=== PATIENT | female | born 1955 | race Caucasian/White ===

== ENCOUNTER → 2017-12-27 11:40 | Outpatient (CLI) | payer OTHER, SELFPAY ==
[2017-12-27 12:18] LABS: Erythrocyte Sedimentation Rate 6 mm/hr (0-30)
[2017-12-27 12:31] LABS: CRP < 2.90 mg/L (0.0-3.0); Ferritin 76 ng/mL (8-252); Iron 94 ug/dL (50-170)
[2017-12-27 12:33] LABS: Vitamin B12 962 pg/mL (211-911)
[2017-12-30 14:35] LABS: Thyroid Stim Hormone (TSH) 1.59 uIU/mL (0.358-3.74)
[2017-12-30 16:09] LABS: PROEL- A/G Ratio 1.2 (0.7-1.7); PROEL- Albumin 3.7 g/dL (2.9-4.4); PROEL- Alpha-1 Globulin 0.2 g/dL (0.0-0.4); PROEL- Alpha-2 Globulin 0.7 g/dL (0.4-1.0); PROEL- Beta Globulin 1.1 g/dL (0.7-1.3); PROEL- Gamma Globulin 1.1 g/dL (0.4-1.8); PROEL- Globulin, Total 3.1 g/dL (2.2-3.9); PROEL- TOTAL PROTEIN 6.8 g/dL (6.0-8.5); PROELU- Albumin, Urine 32.9 % (.); PROELU- Alpha-2-Globulin,Ur 13.5 % (.); PROELU- Beta Globulin, Ur 35.7 % (.); PROELU- Gamma Globulin, Ur 12.9 % (.); Total Protein, Ur 19.9 mg/dL (Not Estab.)
== END ==
PROVIDERS: Family Provider Family Medicine; PCP Family Medicine; Visit Provider Psychiatry & Neurology Neurology
DX: G62.9 Polyneuropathy, unspecified (principal)
CPT/HCPCS: 82607; 82728; 83540; 84165; 84166; 84443; 85652; 86140

== ENCOUNTER → 2018-03-07 12:06 | Outpatient (CLI) | payer OTHER, SELFPAY ==
--- NOTE | 2018-03-07 12:16 | RAD_ITS ---
STUDY: X-RAY - ABDOMEN/PELVIS REASON FOR EXAM: Female, 63 years old. Constipation TECHNIQUE: AP supine and upright views of the abdomen and pelvis. COMPARISON: None. FINDINGS: Normal visualized lung bases. There is a moderate amount of colonic stool. There is no demonstrated free abdominal air. The visualized liver, spleen and kidneys are grossly normal in size and morphology. There are multiple surgical clips in the left abdomen and pelvis. Normal visualized osseous structures. RAD/Abd Inc Decub and/or Erect IMPRESSION: Moderate amount of colonic stool consistent with constipation. There are numerous surgical clips in the left abdomen and pelvis. There is no evidence of ileus or obstruction. Electronically Signed: Tom Estrada MD at 21:52 EDT , Service support ,
== END ==
PROVIDERS: Family Provider Family Medicine; PCP Family Medicine; Visit Provider Family Medicine
DX: K59.00 Constipation, unspecified (principal)
CPT/HCPCS: 74019

== ENCOUNTER → 2018-06-20 17:58 | Outpatient (CLI) | payer OTHER, SELFPAY ==
[2018-06-20 18:50] LABS: CREATININE FINGERSTICK 0.6 mg/dL (0.55-1.02); EGFR FINGERSTICK > 60.0000 mL/min (>60)
== END ==
PROVIDERS: Family Provider Family Medicine; PCP Family Medicine; Visit Provider Family Medicine
DX: R10.9 Unspecified abdominal pain (principal)
CPT/HCPCS: 74160; Q9967; A4216

== ENCOUNTER 2019-02-14 11:33 | Emergency (ER) | payer OTHER, SELFPAY ==
[2019-01-27 10:13] VITALS: BMI 23.7
[2019-02-14 11:34] VITALS: BP 127/85; PULSE 93; RESP 17; TEMP 36.7; O2SAT 99; BMI 25.2
--- NOTE | 2019-02-14 11:46 | RAD_ITS ---
STUDY: X-RAY - RIGHT ANKLE REASON FOR EXAM: Female, 64 years old. Rolled ankle TECHNIQUE: 4 view(s) of the ankle. COMPARISON: None. FINDINGS: There is an acute fracture of the lateral malleolus with soft tissue edema. Normal medial malleoli. Normal tibiotalar articulation and ankle mortise. Normal visualized talus and calcaneus. The visualized subtalar, talonavicular, calcaneocuboid and tarsal articulations are normal. RAD/Ankle min 3 Views IMPRESSION: Fracture of the lateral malleolus soft tissue edema. Electronically Signed: Tisha Arriaza MD at 12:43 EDT Tel , Service support ,
--- NOTE | 2019-02-14 11:46 | ED.VISSUMM ---
- ER Visit Summary Date of Service: 02/14/19 Chief Complaint: Right ankle injury History of Present Illness: The patient is a 64 F who presents after a right ankle injury. Patient tripped over her 's and fell, twisting her right ankle and hitting her left knee. She denies any head, neck or back trauma. Patient is having severe ankle pain now. She has a history of rheumatoid arthritis and took tramadol 1 hour prior to presentation for her chronic pain. She denies any other injuries. Physical Examination: Patient is afebrile and hemodynamically stable sitting in bed. Left knee shows no deformity, abrasions or swelling. Full active range of motion. Right ankle is in a inverted position with shoe and sock still on. After removal of the shoe and sock, patient has swelling and deformity over the lateral malleolus. No abrasions, lacerations or compromise to the integrity of the skin. DP pulses 2+. Sensation and motor function intact distally. Test Results: Clinical Impression(s) from Imaging Studies Ankle X-Ray 02/14/19 11:46 IMPRESSION: Fracture of the lateral malleolus soft tissue edema. Electronically Signed: Tisha Arriaza MD at 12:43 EDT Tel , Service support , Medications Given Discontinued Medications Hydrocodone Bitart/Acetaminophen ([place] 5mg-325mg) 1 tablet PO X1 ONE Stop: 02/14/19 11:47 Last Admin: 02/14/19 12:07 Dose: 1 tablet Emergency Department Course and Treatment: Patient was given a [place] for pain. X-ray performed of the ankle. X-ray showed a distal fibula fracture, consistent with a Brown A type fracture. Patient was placed in a walking boot and given crutches. She will weight-bear as tolerated. She already has a pitch worker, Dr. Meyer, who she will follow-up with this week. Patient has a prescription for tramadol, and can take up to 3 a day but only takes 1/day. She will increase her tramadol dosing for this acute pain. Patient agreed with this plan and was discharged home. Treatment Plan: [] Disposition: [] Impression: Lateral malleolus fracture, left leg This note was generated with Dragon dictation software. It may contain incorrect words, spelling, and punctuation that were not noted in review of the chart prior to signing ED Disposition - Plan for ED Patient: Disposition: Home or Assisted Living Instructions: ED Fx Ankle Lateral Malleolus Referrals: Hailee Musa MD [Primary Care Provider] - As Needed Raysa Teixeira [STAFF PHYSICIAN] - 5-7 Days Additional Instructions: Wear the walking boot except for icing, bathing and dressing. You may weight-bear as tolerated. You may use crutches as needed. Use your tramadol as needed for pain. Ice the ankle 3-4 times a day for 15 to 20 minutes at a time. Please follow-up with your pitch worker within 1 week. If you have any worsening of your condition or any new concerning symptoms, please return immediately to the emergency department for another evaluation.
[2019-02-14] MEDS: HYDROcodone Bitartrate/Apap 5/325 Tablet PO (12:07)
== END 2019-02-14 13:24 | disposition home or self-care (01) ==
PROVIDERS: Emergency Provider Emergency Medicine; Family Provider Family Medicine; PCP Family Medicine
DX: S82.62XA Displaced fracture of lateral malleolus of left fibula, initial encounter for closed fracture (principal); W01.0XXA Fall on same level from slipping, tripping and stumbling without subsequent striking against object, initial encounter; Y93.9 Activity, unspecified; Y92.9 Unspecified place or not applicable; Y99.9 Unspecified external cause status; M06.9 Rheumatoid arthritis, unspecified; G89.29 Other chronic pain
CPT/HCPCS: 73610; 99284

== ENCOUNTER → 2019-03-18 | Outpatient (CLI) | payer OTHER, SELFPAY ==
--- NOTE | 2019-03-18 09:32 | RAD_ITS ---
STUDY: X-RAY - RIGHT ANKLE REASON FOR EXAM: Female, 64 years old. Trauma TECHNIQUE: 3 view(s) of the ankle. COMPARISON: Prior study of 02/14/2019 FINDINGS: Normal visualized distal tibia and fibula. There is a healing nondisplaced transverse fracture of the lateral malleolus. Normal tibiotalar articulation and ankle mortise. Normal visualized talus and calcaneus. The visualized subtalar, talonavicular, calcaneocuboid and tarsal articulations are normal. There is soft tissue swelling over the lateral malleolus. RAD/Ankle min 3 Views IMPRESSION: Healing nondisplaced transverse fracture of the lateral malleolus. Electronically Signed: Tom Estrada MD at 22:12 EDT , Service support ,
== END | disposition home or self-care (01) ==
LOC: HPRAD 09:29
PROVIDERS: Family Provider Family Medicine; PCP Family Medicine; Referring Provider Podiatrist; Visit Provider Podiatrist
DX: S82.91XD Unspecified fracture of right lower leg, subsequent encounter for closed fracture with routine healing (principal)
CPT/HCPCS: 73610

== ENCOUNTER → 2019-04-15 09:07 | Outpatient (CLI) | payer OTHER, SELFPAY ==
--- NOTE | 2019-04-15 09:12 | RAD_ITS ---
STUDY: X-RAY - RIGHT ANKLE REASON FOR EXAM: Female, 64 years old. Fracture TECHNIQUE: 3 view(s) of the ankle. COMPARISON: 03/18/2019. FINDINGS: No significant change. Stable appearance of fracture line across the lateral malleolus suggestive of nondisplaced ununited lateral malleolar fracture. No other changes or abnormalities. RAD/Ankle min 3 Views IMPRESSION: No significant change. Stable fracture line across the distal fibular tip. Electronically Signed: Keo Hazel MD at 19:28 EDT , Service support ,
== END ==
PROVIDERS: Family Provider Family Medicine; PCP Family Medicine; Referring Provider Podiatrist; Visit Provider Podiatrist
DX: S82.91XD Unspecified fracture of right lower leg, subsequent encounter for closed fracture with routine healing (principal)
CPT/HCPCS: 73610

== ENCOUNTER → 2019-05-20 | Outpatient (CLI) | payer OTHER, SELFPAY ==
--- NOTE | 2019-05-20 09:35 | RAD_ITS ---
STUDY: X-RAY - RIGHT ANKLE REASON FOR EXAM: Female, 64 years old. Pain TECHNIQUE: 3 view(s) of the ankle. COMPARISON: 04/15/2019 FINDINGS: There is a stable nondisplaced healing fracture of the lateral malleolus. There is no new fracture. There is no dislocation. There are no radiodense foreign bodies. RAD/Ankle min 3 Views IMPRESSION: Stable nondisplaced healing fracture of the lateral malleolus. Electronically Signed: Reece Gregorio, at 17:04 EDT Tel , Service support ,
== END | disposition home or self-care (01) ==
LOC: HPRAD 09:31
PROVIDERS: Family Provider Family Medicine; PCP Family Medicine; Referring Provider Podiatrist; Visit Provider Podiatrist
DX: S82.91 Unspecified fracture of right lower leg (principal)
CPT/HCPCS: 73610

== ENCOUNTER 2019-05-27 12:30 | Outpatient (RCR) | payer OTHER, SELFPAY ==
--- NOTE | 2019-04-28 09:38 | HP.PTEVAL ---
Patient's Visit Information BRAN ANDRES is a 64 year old F referred to Physical Therapy by Raysa Teixeira with a diagnosis of Right Fibular Fracture. Date of Evaluation: 04/28/19 Physical Therapist: Radha Cortez DPT - Visit Plan Frequency: 1x/Week Duration: 6 Weeks Plan: Focus on returning to normal movement - Subjective Findings: Broke her right leg fibula- fell over a boot February 15- went to the ER-broken- sent to see Dr. Teixeira. Boot- no crutches- WBAT. Wore boot for 5 weeks then graduated to an air cast. 8 weeks stopped using the brace. Now she feels like she is messed up with the way she walks and the plantar fascitis is worse on the left foot. Just feels out of sort. Dr. Teixeira wanted her to come and be evaluated. Has returned to yoga slightly- but does not put all her weight through her right foot. Feels as through she has diminshed ROM and doesn't want to put pressure on the lateral aspect of the ankle. Is seeing Dr. Reno for her back due to the boot. She is having problems sleeping due to her back and left shoulder. Right Foot: she has a hard time differentiating from the RA- lack of arch and break Worst in last week: 7/10 Agg: being on her feet, end range positions, pressure on the outside of the ankle Best: 0/10 Eases: elevation, Tramadol. Describes the pain as throbbing, achy. Neuropathy bilateral LE and restless leg. Worst in the evening. 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 Wants to be more active. PMhx/Meds: no changes since last evaluation. X-ray is healing but not all the way there yet. - Objective Posture: good in supported sitting. Gait: slightly antalgic- decreased stance on the right LE with mild circumduction and decreased heel/toe pattern. HR/TR: able with UE A for balance. SLS: 8 sec then LOB. Palpation: tender along lateral malleolus. ROM: DF: 10 degrees, PF: 70 degrees, Inver: 40 degrees, Ever: 30 degrees. Strength: Ankle: 5/5, Knee: 4+/5, Hip: 4+/5 Core: fair plus. Flex: Gastroc: moderate, Hamstring: moderate - Goals Goal 1:: Patient will be I with HEP and progression Goal Time Frame: 4-6 Weeks Goal 2:: Patient will ambulate >300 feet with a normalized gait pattern Goal Time Frame: 4-6 Weeks Goal 3:: Patient will report 0/10 pain with return to all normal activities Goal Time Frame: 4-6 Weeks - Rehabilitation Potential Physical Therapy Diagnosis: Patient presents with fear of movement- she has full functional ROM, strength- but lacks endurance and a smooth movement pattern. Rehabilitation Potential: Good - Anticipated Interventions Patient/Client Instruction: Educate patient on: Benefits of Fitness Program Therapeutic Exercise to Include: Strength training, Endurance training, Balance training, Agility training, Body mechanics, Postural training, Neuromotor development, Passive ROM, Active ROM, Dynamic Lumbar Stabilization For the Purpose of:: To improve muscle performance and motor function Thank you for the opportunity to evaluate your patient. For Medicare and Medicare HMO plans, please review the plan of care and approve it. It will need to be FAXED BACK to us at [phone] for Medicare purposes. For Medicare only, by signing this I certify the plan of care. Please let me know if there are questions or concerns regarding this plan of care. Physician Signature: Date:
--- NOTE | 2019-06-23 11:30 | HP.PT.NRP ---
HP - Discharge Summary (1) - Patient Information BRAN ANDRES was seen in my office for initial evaluation on 04/28/19. The following Plan of Care was established for this patient: Initial Frequency: 1x/Week Initial Duration: 6 Weeks - Anticipated Interventions Patient/Client Instruction: Educate patient on: Benefits of Fitness Program Therapeutic Exercise to Include: Strength training, Endurance training, Balance training, Agility training, Body mechanics, Postural training, Neuromotor development, Passive ROM, Active ROM, Dynamic Lumbar Stabilization For the Purpose of:: To improve muscle performance and motor function This patient was last seen in our office . Pertinent comments regarding their Physical therapy will appear below: Patient has not attended physical therapy in over 4 weeks- it is appropriate to d/c at this time and return to MD for further evaluation as needed. At this point I will be discontinuing this patient from physical therapy. I would be happy to see this patient again in the future if found appropriate by the physician. Thank you! Rdaha Cortez DPT
== END 2019-05-27 19:00 | disposition home or self-care (01) ==
LOC: PT 12:30
PROVIDERS: Family Provider Family Medicine; PCP Family Medicine; Referring Provider Podiatrist; Visit Provider Podiatrist
DX: M99.03 Segmental and somatic dysfunction of lumbar region (principal); M50.30 Other cervical disc degeneration, unspecified cervical region; M99.02 Segmental and somatic dysfunction of thoracic region; M99.04 Segmental and somatic dysfunction of sacral region; M99.01 Segmental and somatic dysfunction of cervical region
CPT/HCPCS: 97113; 97162; 97530

== ENCOUNTER → 2019-07-06 10:27 | Outpatient (CLI) | payer OTHER, SELFPAY ==
--- NOTE | 2019-07-06 10:32 | RAD_ITS ---
STUDY: X-RAY - PELVIS AND RIGHT HIP REASON FOR EXAM: Female, 64 years old. Pain. No known injury. TECHNIQUE: 3 views of the pelvis and hip. COMPARISON: None. FINDINGS: No visible fracture. No osseous destruction. Alignment anatomic. Mild degenerative changes. Soft tissues with no acute findings. Surgical clips left lower abdomen and pelvis. RAD/HIP, UNI W/ Pelvis 2-3 Views IMPRESSION: No acute osseous abnormality. Electronically Signed: oTm Arauz, at 19:33 EDT Tel , Service support ,
== END ==
LOC: MTLAB 10:29 → MTRAD 10:30
PROVIDERS: Family Provider Family Medicine; PCP Family Medicine; Referring Provider Family Medicine; Visit Provider Family Medicine
DX: M25.551 Pain in right hip (principal)
CPT/HCPCS: 73502

== ENCOUNTER → 2020-08-09 13:40 | Outpatient (CLI) | payer OTHER, SELFPAY ==
[2020-08-14 13:12] LABS: HPV Reflexed? NOT INDICATED
== END ==
PROVIDERS: PCP Family Medicine; Referring Provider Family Medicine; Visit Provider Family Medicine
DX: Z12.4 Encounter for screening for malignant neoplasm of cervix (principal)
CPT/HCPCS: 88175; G0145

== ENCOUNTER → 2020-08-23 13:59 | Outpatient (CLI) | payer OTHER, SELFPAY ==
--- NOTE | 2020-08-23 14:06 | BD_ITS ---
STUDY: DUAL ENERGY X-RAY ABSORPTIOMETRY / DXA REASON FOR EXAM: Female, 65 years old. 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 -- TAKES DIURETIC IN BP MED -- TAKES GABAPENTIN -- TAKES MULTIVITAMIN -- DOES HIGH AMOUNT OF EXERCISE -- FAMILY HX OF OSTEO- MOTHER -- HX OF RIGHT FIBULA FX -- NO MAYANK TECHNIQUE: Bone Mineral Density (BMD) measurements of lumbar spine and bilateral hips were obtained. COMPARISON: Comparison is made with prior study dated 04/24/2016. FINDINGS: Lumbar Spine (L1-L4): g/cm2 (1.111) / T-score (-0.6) / Z-score (0.9) Findings are suggestive of normal bone density with a low fracture risk. Left Femur Total: g/cm2 (0.853) / T-score (-1.2) / Z-score (-0.1) Left Femoral Neck: g/cm2 (0.789) / T-score (-1.8) / Z-score (-0.4) Right Femur Total: g/cm2 (0.879) / T-score (-1.0) / Z-score (0.1) Right Femoral Neck: g/cm2 (0.820) / T-score (-1.6) / Z-score (-0.2) The T-Scores on the most recent prior examination were: Lumbar Spine (L1-L4): There has been improvement of bone density since the previous examination. Left Femur Total: which represents a worsening of 0.2%. Right Femur Total: which represents an improvement of 2.6%. BD/Dexa Bone Density Study IMPRESSION: The patient is considered osteopenic as outlined below according to World Jimmie Organization (WHO) criteria with a moderate fracture risk. There has been worsening of bone density since the previous examination. Reference Information: The T-score is the number of standard deviations above or below the standard which is normal for young adults at their peak bone mineral density. The World Health Organization (WHO) interprets the T-scores as follows: Above -1 Normal bone density Between -1 and -2.5 Osteopenia Equal to / or below -2.5 Osteoporosis As a practical clinical guideline, osteopenia may be graded as follows: Mild -1 through -1.5 Moderate -1.6 through -2.0 Severe -2.1 through -2.4 The Z-score is the number of standard deviations above or below age-matched controls. A Z-score of less than -1.5 would be considered abnormal. References: 1. NIH Osteoporosis and Related Bone Diseases www osteo.org 2. International Society for Clinical Densitometry www iscd.org 3. National Osteoporosis Foundation www nof.org Electronically Signed: Milton Guzman, at 15:29 EST , Service support ,
== END ==
PROVIDERS: PCP Family Medicine; Referring Provider Family Medicine; Visit Provider Family Medicine
DX: N95.9 Unspecified menopausal and perimenopausal disorder (principal)
CPT/HCPCS: 77080

== ENCOUNTER → 2020-10-24 14:18 | Outpatient (CLI) | payer OTHER, SELFPAY ==
[2020-10-24 18:05] LABS: Absolute Lymphocyte Count 0.94 X10^3/uL (0.83-4.51); Absolute Neutrophil Count 3.6 X10^3/uL (2.0-7.7); Basophil# 0.05 X10^3/uL; Basophil% 0.9 % (0-1); Eosinophil# 0.51 X10^3/uL; Eosinophils% 9.2 % (0-5); Hematocrit 36.5 % (37-47); Lymphocyte # 0.94 X10^3/ul (4.0); Lymphocyte % 16.9 % (19-41); Mean Corp Hgb Conc 32.9 g/dL (32-36); Mean Corpuscular Hgb 32.5 pg (27.0-32.0); Mean Corpuscular Volume 98.9 fL (81-99); Mean Platelet Vol. 10.1 fl (6.2-12.0); Monocyte# 0.46 X10^3/uL; Monocyte% 8.3 % (0-10); NRBC Flagged by Analyzer 0 % (0-5); Neutrophil # 3.58 X10^3/uL (2.7-7.7); Neutrophil % 64.3 % (47-70); Platelet Count 341 K/mm3 (150-450); RBC Distribution Width CV 14.4 % (11.6-14.6); RBC Distribution Width SD 52.4 fl (35.1-43.9); Red Blood Count 3.69 M/mm3 (4.2-5.4); White Blood Count 5.6 K/mm3 (4.4-11.0)
[2020-10-24 18:12] LABS: ALB/GLOB Ratio 1.1 RATIO (0.9-2.4); AST(SGOT) 22 U/L (15-37); Alanine Aminotransfer ALT/SGPT 25 U/L (13-56); Albumin, Serum 3.6 g/dL (3.2-5.0); Alkaline Phosphatase 89 U/L (45-117); Anion Gap 6 (5-15); BUN 14 mg/dL (7-18); BUN/Creat Ratio 17.9 RATIO (10-20); Calcium,Total 8.8 mg/dL (8.5-10.1); Chloride 101 mmol/L (98-107); Creatinine, Serum 0.78 mg/dL (0.55-1.02); EST Glomerular Filtration Rate 79 mL/min (>60); Est Glom Filt Rate - Afr Amer 96 mL/min (>60); Globulin 3.4 g/dL (2.2-4.2); Glucose 82 mg/dL (74-106); Sodium Level 139 mmol/L (136-145)
== END ==
PROVIDERS: PCP Family Medicine; Referring Provider Internal Medicine Rheumatology; Visit Provider Internal Medicine Rheumatology
DX: M05.70 Rheumatoid arthritis with rheumatoid factor of unspecified site without organ or systems involvement (principal); Z79.899 Other long term (current) drug therapy; M35.00 Sjogren syndrome, unspecified; M18.0 Bilateral primary osteoarthritis of first carpometacarpal joints; G62.0 Drug-induced polyneuropathy; M21.40 Flat foot [pes planus] (acquired), unspecified foot; F32.9 Major depressive disorder, single episode, unspecified; I10 Essential (primary) hypertension; Z85.3 Personal history of malignant neoplasm of breast
CPT/HCPCS: 36415; 80053; 85025

== ENCOUNTER → 2021-03-01 10:23 | Outpatient (CLI) | payer OTHER, SELFPAY ==
--- NOTE | 2021-03-01 10:28 | US_ITS ---
STUDY: RENAL ULTRASOUND - COMPLETE REASON FOR EXAM: Female, 66 years old. Elevated BUN/creatinine TECHNIQUE: Ultrasound evaluation of the kidneys was performed with real-time and static barclay-scale imaging. COMPARISON: None. FINDINGS: RIGHT KIDNEY: Normal location of the right kidney, which is normal in size. The right kidney measures 10.4 x 4.8 x 4.3 cm. There is a normal cortex of the right kidney. The renal cortex measures 1.8 cm. There is no right renal mass or cyst. There are no right renal calculi. There is no right hydronephrosis. DISTAL RIGHT URETER: There is non-visualization of the distal right ureter. There is no demonstrated right ureterovesical junction calculus. There is a visualized right ureteral jet. LEFT KIDNEY: Normal location of the left kidney, which is normal in size. The left kidney measures 10.3 x 4.7 x 5.1 cm. There is a normal cortex of the left kidney. The renal cortex measures 1.5 cm. There are 2 simple cysts, larger measures 1.1 cm There are no left renal calculi. There is no left hydronephrosis. DISTAL LEFT URETER: There is non-visualization of the distal left ureter. There is no demonstrated left ureterovesical junction calculus. There is a visualized left ureteral jet. AORTA: There is no elongation or tortuosity of the abdominal aorta. I.V.C.: The IVC is patent. BLADDER: The distended urinary bladder has a volume of 256.7 ml. The empty urinary bladder has a volume of 14.96 ml. There is a normal wall thickness of the distended urinary bladder. There is no demonstrated mass within the urinary bladder. There are no demonstrated bladder calculi. US/Kidney and Bladder IMPRESSION: No suspicious sonographic findings, simple left renal cysts, no specific follow-up needed Electronically Signed: Arnaldo Mackay MD at 11:30 EDT , Service support ,
== END ==
PROVIDERS: PCP Family Medicine; Referring Provider Urology; Visit Provider Urology
DX: R39.12 Poor urinary stream (principal); R39.11 Hesitancy of micturition
CPT/HCPCS: 76770

== ENCOUNTER 2021-03-22 13:30 | Outpatient (RCR) | payer OTHER, SELFPAY ==
--- NOTE | 2021-02-01 16:29 | HP.PTEVAL ---
Patient's Visit Information BRAN ANDRES is a 66 year old F referred to Physical Therapy by Dr. Hailee Musa MD with a diagnosis of Shoulder Pain. Date of Evaluation: 02/01/21 Physical Therapist: Radha Cortez DPT - Visit Plan Frequency: 1x/Week Duration: 4 Weeks Plan: Focus on scapular strength/stabilization. HEP Issued IE:Phase 3 RTC exercises- green tband- Postural correction - Subjective She reports that her left shoulder has not been feeling right- decreased strength and feels like something it wrong. Pain is in the anterior shoulder and into the scapula. Told her PCP who sent her to PT. She is concerned that something is torn. Pain as been about 2 years and she thought the more she would do it would be better. It hurts when she moves from her arm. Feels shifting and clunking in the shoulder. Just had a massage with Mary and she worked a lot in the shoulder and it helped a lot. Worst: 4/10 Agg: forward positioning, chataranga Eases: massage Best: 0/10. Does have zingers down her arm but that comes and goes. Describes the pain as dull and achy. N/T in her fingers that is mild all the time. Has not had x-rays on her neck or shoulder. Couple of times a week yoga at home- - Objective Posture: FH, RS- can correct but does not maintain. Gait: good arm swing and trunk rotation. Palpatoin: tender along infraspinatus, bicipital groove. ROM: WFL in all planes but reports pain end range flexion/abduction. Strength: Scap: fair minus, Shoulder: 4/5 throughout, Elbow: 4+/5, Snow Plow Operator:fair problems with RA. Special Test: impingment: positive (rowaner and avani cantu), Empty Can: negative, LIft off: positive - Goals Goal 1:: Patient will be I with HEP and progression Goal Time Frame: 4-6 Weeks Goal 2:: Patient will maintain proper posture t/o tx session to demo increased scap s.s Goal Time Frame: 4-6 Weeks Goal 3:: Patient will report no pain for 1 week Goal Time Frame: 4-6 Weeks - Rehabilitation Potential Physical Therapy Diagnosis: Patient presents with hypomobility- she has decreased painfree ROM, scapular s/s and muscular endurance leading to poor posture and increased pain with ADL's. Rehabilitation Potential: Good - Anticipated Interventions Patient/Client Instruction: Educate patient on: Benefits of Fitness Program Therapeutic Exercise to Include: Strength training, Power training, Endurance training, Balance training, Coordination, Body mechanics, Postural training, Flexibilty training, Gait and locomotor training, Passive ROM, Active ROM, Dynamic Lumbar Stabilization, Scapular Strength/Stabilization For the Purpose of:: To improve muscle performance and motor function Thank you for the opportunity to evaluate your patient. For Medicare and Medicare HMO plans, please review the plan of care and approve it. It will need to be FAXED BACK to us at [phone] for Medicare purposes. For Medicare only, by signing this I certify the plan of care. Please let me know if there are questions or concerns regarding this plan of care. Physician Signature: Date:
--- NOTE | 2021-03-08 11:01 | HP.PTEVAL2_ITS ---
Patient's Visit Information BRAN ANDRES is a 66 year old F referred to Physical Therapy by Dr. Hailee Musa MD with a diagnosis of vertigo. Date of Evaluation: 03/08/21 Physical Therapist: Joon Barrera, NOELT, OCS, CSCS - Visit Plan Frequency: 1x/Week Duration: 2-4 Weeks Plan: Neurocom balance test adn educate russell [place] further needs. pt doing really well with balance clinically today, likely missing some weight shifting and possibly some vestib deficits. No dizzyness or spinning. - Subjective Subjective: I want to gauge how I am doing as i feel like balance is worsening over the years. Possibly related to chemo many years ago. Does a lot of yoga to maintain what she has. Feels unsteady standing at times. Had a couple falls in the last year which weere not major. 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 Last balance check was sharon a decade ago. Feet are very flat footed. Always wears orthotics. Has RA that affects her feet. 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 Will see neurologist at [facility]. [place] [facility] [place] gets painful in feet when on feet alot. Hard to work on a hill. Basic ADLs are getting done. Sleeping is intrrupted due to sleep apnea. No dizzyness or spinning except in am getting out of bed and does uturn to go up steps she feels unsteady, no spinning. - Objective Objective: Walks normal and trasnfers without UE bed adn chair. steps reciprocal without rail. LE AROM WFL. Sensation below knees at slight defiict. reflexes 2/3 patella and 1/3 achilles. strength LE 4/5 xcept hip ext rotation which is 3. coordination to reciprocal toe adn heel tap is mild deficit. SLS is tough with ec and arms at side bu able with arms up. - Balance Scores Functional Gait Assessment Score: 29 % Disability: 3.3400 CATSIB Score (Max score 120 seconds): 100 - Goals Goal 1:: neurocom balance test adn educate on results and appropriate ex. Goal Time Frame: 2-4 Weeks - Rehabilitation Potential Physical Therapy Diagnosis: imbalance Rehabilitation Potential: Fair - Anticipated Interventions Patient/Client Instruction: Educate patient on: Condition, Risk Factors For the Purpose of:: To improve balance Therapeutic Exercise to Include: Balance training For the Purpose of:: To improve balance Thank you for the opportunity to evaluate your patient. For Medicare and Medicare HMO plans, please review the plan of care and approve it. It will need to be FAXED BACK to us at [phone] for Medicare purposes. For Medicare only, by signing this I certify the plan of care. Please let me know if there are questions or concerns regarding this plan of care. Physician Signature: Date:
--- NOTE | 2021-03-08 11:15 | HP.PTDCSUM ---
It has been my pleasure to treat BRAN ANDRES referred by Dr. Hailee Musa MD, with the diagnosis of Shoulder Pain for a total of 5 visit(s). Discharge Date: Please see the following information for a summary of their discharge status. Subjective: Patient reports that her shoulder is a lot better. The anterior shoulder pain is still there but she expects it to be since she does yoga. She is so much more aware of her body position in yoga. She is working towards her scapular strength/stabilization % Improvement: 85 Objective/Function: Posture: FH, RS- can correct and maintain with VC's Gait: good arm swing and trunk rotation. Palpation: tender along infraspinatus, bicipital groove and into the pec. ROM: WFL in all planes no pain at end range. Strength: Scap: fair, Shoulder: 4+/5 throughout, Elbow: 5/5, Route Inspector:fair problems with RA. Special Test: impingement: positive (pamela and avani cantu), Empty Can: negative, Lift off: positive Goal 1:: Patient will be I with HEP and progression Goal Progress: Goal Met Goal 2:: Patient will maintain proper posture t/o tx session to demo increased scap s.s Goal Progress: Goal Met Goal 3:: Patient will report no pain for 1 week Goal Progress: Progressing Plan: 03/08/2021: Discharge to I HEP. Focus on scapular strength/stabilization. HEP Issued IE:Phase 3 RTC exercises- green tband- Postural correction If there are questions or concerns regarding this patient's physical therapy, please feel free to call me at [phone]. Thank you for the referral of this patient. Sincerely, Radha Cortez DPT
--- NOTE | 2021-03-15 09:51 | HP.PTCOM_ITS ---
PT Communication Note 03/15/[address] Hailee Musa MD , Thank you for the referral of Margarette to [facility] for balance assessment. I have enclosed a copy of the results for your review. In summation, she scored low on the visual and vestibular portion of the Sensory Organization Test. She scored normal on the Motor Control test. She scored slightly low on the forward excursion of the Limits of Stability Test. With these results in mind, I plan to see her for 1-4 visits to instruct in additional exercises for these balance deficits until Independent. Please contact me with any questions you may have. Thank you. Sincerely, Joon Barrera DPT, OCS, CSCS Contact Information
== END 2021-03-22 19:00 | disposition home or self-care (01) ==
LOC: PT 13:30
PROVIDERS: PCP Family Medicine; Referring Provider Family Medicine; Visit Provider Family Medicine
DX: S46.912D Strain of unspecified muscle, fascia and tendon at shoulder and upper arm level, left arm, subsequent encounter (principal); X58.XXXD Exposure to other specified factors, subsequent encounter
CPT/HCPCS: 97110; 97162; 97164; 97750

== ENCOUNTER → 2021-09-06 07:34 | Outpatient (CLI) | payer OTHER, SELFPAY | PROVIDERS: PCP Family Medicine; Visit Provider Family Medicine | DX: U07.1 COVID-19 (principal) | CPT/HCPCS: 87635; U0005; U0003 ==

== ENCOUNTER 2021-09-11 15:16 | Outpatient (CLI) | payer OTHER, SELFPAY ==
[2021-09-11 15:48] VITALS: BP 113/74; PULSE 104; RESP 18; TEMP 38.2; O2SAT 97; BMI 27.1
[2021-09-11] MEDS: 0.9% Saline Lock 10 ML Syringe IV (15:51)
[2021-09-11] MEDS: Acetaminophen 325 MG Tablet 650 MG PO (15:58)
[2021-09-11 16:22] VITALS: BP 120/68; PULSE 99; RESP 16; TEMP 38.4; O2SAT 97
[2021-09-11 17:17] VITALS: BP 110/71; PULSE 97; RESP 16; TEMP 37.6; O2SAT 95
== END 2021-09-11 17:22 | disposition home or self-care (01) ==
LOC: MS3OUT 15:16 → MS3 15:17
PROVIDERS: PCP Family Medicine; Referring Provider Nurse Practitioner Adult Health; Visit Provider Nurse Practitioner Adult Health
DX: Z23 Encounter for immunization (principal); U07.1 COVID-19
CPT/HCPCS: J7050; M0245; Q0245; A4216

== ENCOUNTER 2022-08-03 11:00 | Outpatient (RCR) | payer OTHER, SELFPAY ==
--- NOTE | 2022-06-29 14:15 | HP.PTEVAL_ITS ---
Patient's Visit Information BRAN ANDRES is a 67 year old F referred to Physical Therapy by Dr. 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 Date of Evaluation: 06/29/22 Physical Therapist: Claire Diaz PT, Cert MDT - Visit Plan Frequency: 1x/Week Duration: 6-8 WKS Plan: MANUAL PF THERAPY FOR STRENGTHENING, LENGTHENING/RELAXATION, TRIGGER POINT RELEASE AND ENDURANCE TRAINING. URINARY RETENTION EDUCATION AND CONSIDER TRAINING IN THE CREDE TECHNIQUE AND DOUBLE VOIDING. TRAINING IN COORDINATION OF PELVIC FLOOR MUSCULATURE WITH CORE (TRANSVERSE ABDOMINUS) STRENGTHENING. TRAINING IN ABDOMINAL CAVITY PRESSURE MGMT WITH ADL'S TO DECREASE ANY URINARY LEAKING. 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 NO HEAVY LIFTING (substituting). ALSO WORKS ONE DAY A WEEK AT [employer]. Present symptoms: I CAN'T SEEM TO RELAX THE MUSCLES IN MY PELVIC FLOOR TO ALLOW ME TO URINATE. Present since: OVER A YEAR. Pain Scale: NOT HAVING P AIN. BETTER: STARTED MUSCLE RELAXER PRESCRIBED BY DR. BILLS 06/12/22 AND NOW ABLE TO GO EASIER AT NIGHT. WORSE: NOTHING. Commenced as a result of: PATIENT REPORTS SHE HAS BEEN TOLD SHE IS HAVING THIS PROBLEM BECAUSE HER PELVIC FLOOR MUSCLES ARE TOO TIGHT. Disturbed sleep: GETTING UP TO URINATE 2X'S AT NIGHT. Previous history/Previous treatment: H/O CHRONIC LOW BACK ACHE AND rheumatoid ARTHRITIS. TRIED PT AT [facility] AND IN [place] WITH A THERAPIST NAMED EMELIA. PATIENT REPORTS THAT THE THERAPIST IN [place] WAS NOT ABLE TO HELP HER. SHE ONLY WENT TO ONE VISIT IN [place]. IN [place] SHE REPORTS THEY WORKED ON HER HIPS AND DID INTERNAL RELEASING OF TIGHT MUSCLES IN VAGINAL WALL BUT DRIVING THERE WAS TAXING. SHE REPORTS SHE HAD ABOUT 10 VISITS IN [place] LAST YEAR AND THEN SHE GOT COVID. PATIENT REPORTS THE HOME EX'S SHE RECEIVED IN [place] WERE ALREADY A PART OF HER [place]OGA PRBACTICE AND SHE STILL DOES THEM FOR THE MOST PART. SHE REPORTS SHE FELT LIKE MOST OF THOSE EX'S WERE STENGTHENING THE PELVIC FLOOR. OVER-ALL SHE ONLY FELT BENEFIT FROM THE INTERNAL STRETCHING. Coughing/sneezing/straining: PATIENT REPORTS RARE LEAKING WITH THINGS LIKE COUGHING AND SNEEZING. Bowel or Bladder Dysfunction: DIFFICULTY EMPTYING BLADDER. PAIN PILLS TAKEN FOR FEET CAN BE CONSTIPATING. Unexplained weight loss: NO. Imaging: PATIENT REPORTS TETSTING SHOWS THAT SHE DOES A PRETTY GOOD JOB OF EMPTYING BUT SHE HAVING A HARD TIME PUSHING THE LAST BIT OUT. PMH/Recent major surgery: RA. SOME DETERIORATION IN R HIP UPON RECENT X-RAY. NEUROPATHY. BREAST CANCER 2004 TREATED WITH CHEMO AND MASECTOMY (USED L RECTUS ABDOMINUS FOR RECONSTRUCTION). FLAT FEET (WEARS [employer]THOTICS). - Objective Sitting/Standing Posture: FAIR. Lordosis: NORMAL. Lateral shift: NO. Other Observations: INDEP GAIT AND TRANSFERS. Sensory deficit: JORDY LE LIGHT TOUCH SENSATION GROSSLY INTACT AND SYMMETRICAL. ROM deficit: JORDY LE ROM WFL BUT TIGHT JORDY HIP ADDUCTORS. Motor deficit: JORDY LE'S GROSSLY 5/5 WITH MMT'ING EXCEPT LEFT HIP 4/5 AND RIGHT HIP 4-/5. Dural Signs: NEGATIVE JORDY LE'S. Lumbar mvmt loss: flex - NIL. ext - MIN. R SG - MIN. L SG - NIL. Core strength: FAIR. Palpation: NO ACUTE LUMBAR OR HIP TENDERNESS. INTERNAL MANUAL EXAM REVEALS MULTIPLE TRIGGER POINTS OF THE PELVIC FLOOR RIGHT SIDE GREATER THAN LEFT. INTERNAL EXAMINE ALSO REVEALS GENERAL PELVIC FLOOR TIGHTNESS. PF STENGTH IS GRADED 5/5 WITH AT LEAST 8 SEC ENDURANCE. - Goals Goal 1:: PATIENT REPORT 50% IMPROVEMENT IN EASE OF VOIDING Goal Time Frame: 6-8 Weeks Goal 2:: PATIENT WILL REPORT ABILITY TO FULLY EMPTY BLADDER AT LEAST 50% OF THE TIME Goal Time Frame: 6-8 Weeks Goal 3:: PATIENT WILL DEMONSTRATE 10 CONSISTENT AND CONSECUTIVE 10 SECOND PELVIC FLOOR MUSCLE CONTRACTIONS TO DEMONSTRATE IMPROVED PELVIC FLOOR ENDURANCE. . Goal Time Frame: 4-6 Weeks Goal 4:: PATIENT WILL BE INDEP WITH A HEP/HOME INSTRUCTIONS FOR CONTINUED IMPROVEMENT ONCE FORMAL PHYSICAL THERAPY CONCLUDES Goal Time Frame: 6-8 Weeks - Anticipated Interventions Patient/Client Instruction: Educate patient on: Condition, Plan of Care, Risk Factors For the Purpose of:: To improve self management Therapeutic Exercise to Include: Strength training, Endurance training, Body mechanics, Postural training, Flexibilty training, Relaxation training For the Purpose of:: To improve muscle performance and motor function Thank you for the opportunity to evaluate your patient. For Medicare and Medicare HMO plans, please review the plan of care and approve it. It will need to be FAXED BACK to us at [phone] for Medicare purposes. For Medicare only, by signing this I certify the plan of care. Please let me know if there are questions or concerns regarding this plan of care. Physician Signature: Date:
--- NOTE | 2022-08-03 12:14 | HP.PTDCSUM ---
It has been my pleasure to treat BRAN ANDRES referred by Dr. 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 Discharge Date: 08/03/22 Please see the following information for a summary of their discharge status. Subjective: PATIENT REPORTS SHE HAS BEEN DOING SOME OF THE HOME EX'S. NO SIGNIFICANT CHANGE IN SX'S BUT REPORTS SHE IS STRONG ENOUGH TO STOP HER STREAM DURING URINATION. SHE STATES THAT SHE HAS BEEN WONDERING IF SOME OF HER PROBLEMS ARE COMING FROM HER LOW BACK. Objective/Function: THIS PT RECOMMENDS PHYSICIAN FOLLOW UP BASED ON LACK OF PROGRESS WITH PT THIS EPISODE OF CARE. PATIENT IS AGREEABLE. Goal 1:: PATIENT REPORT 50% IMPROVEMENT IN EASE OF VOIDING Goal 2:: PATIENT WILL REPORT ABILITY TO FULLY EMPTY BLADDER AT LEAST 50% OF THE TIME Goal 3:: PATIENT WILL DEMONSTRATE 10 CONSISTENT AND CONSECUTIVE 10 SECOND PELVIC FLOOR MUSCLE CONTRACTIONS TO DEMONSTRATE IMPROVED PELVIC FLOOR ENDURANCE. . Goal 4:: PATIENT WILL BE INDEP WITH A HEP/HOME INSTRUCTIONS FOR CONTINUED IMPROVEMENT ONCE FORMAL PHYSICAL THERAPY CONCLUDES Plan: D/C DUE TO LACK OF PROGRESS. If there are questions or concerns regarding this patient's physical therapy, please feel free to call me at [phone]. Thank you for the referral of this patient. Sincerely, Claire Diaz, PT, Cert MDT
== END 2022-08-03 19:00 | disposition home or self-care (01) ==
LOC: PT 11:00
PROVIDERS: PCP Family Medicine; Referring Provider Urology; Visit Provider Urology
DX: M99.05 Segmental and somatic dysfunction of pelvic region (principal)
CPT/HCPCS: 97140; 97162; 97530

== ENCOUNTER → 2022-09-26 | Outpatient (CLI) | payer OTHER, SELFPAY ==
--- NOTE | 2022-09-26 16:18 | RAD_ITS ---
EXAM: XR LUMBOSACRAL SPINE, 4 OR 5 VIEWS CLINICAL INDICATION: BLADDER DYSFUNCTION TECHNIQUE: Frontal, lateral and bilateral oblique views of the lumbar spine. This report was created using [employer] report [employer] technology. COMPARISON: None. FINDINGS: VERTEBRAE: Unremarkable. Preserved vertebral body height. No fracture. No spondylolisthesis. Preservation of the normal lumbar lordosis. No significant facet arthropathy. DISC SPACES: Hypertrophic changes of the L4-S1 facet joints, suspicion of at least mild multilevel neural foraminal stenosis. SOFT TISSUES: Scattered surgical clips at the anterior pelvis partially included. GASTROINTESTINAL TRACT: Moderate stool in the right colon, mild stool in the transverse colon, mild gas and stool in the sigmoid. Included bowel gas pattern is non-obstructive. RAD/L/S Spine Min 4 Views IMPRESSION: 1. Hypertrophic facet joints and suspected at least mild neural foraminal stenosis at L4-5 and L5-S1. Cannot exclude some degree of spinal stenosis, especially at L5-S1. 2. No other suspicious lumbar spine findings. Moderate stool in the colon. Electronically Signed: Briana Rehman MD at 1:53 EST ,
== END | disposition home or self-care (01) ==
LOC: MTRAD 16:17
PROVIDERS: PCP Family Medicine; Referring Provider Family Medicine; Visit Provider Family Medicine
DX: G62.9 Polyneuropathy, unspecified (principal)
CPT/HCPCS: 72110

== ENCOUNTER 2022-10-25 10:57 | Outpatient (RCR) | payer OTHER, SELFPAY ==
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
--- NOTE | 2023-01-09 11:59 | HP.PTDCNRP_ITS ---
BRAN ANDRES was seen in my office for initial evaluation on 10/25/22. The following Plan of Care was established for this patient: Initial Frequency: 1x/Week Initial Duration: 6 Weeks Patient/Client Instruction: Educate patient on: Condition, Plan of Care, Risk Factors For the Purpose of:: To improve self management Therapeutic Exercise to Include: Strength training, Body mechanics, Postural training, Flexibilty training, Neuromotor development, Dynamic Lumbar Stabilization For the Purpose of:: To decrease pain, To increase ROM, To improve muscle performance and motor function, To increase tolerance to activity/conditi on/position, To improve ability of physical actions for home/community/work/leisure Manual Therapy Techniques to Include: Soft tissue mobilization Comment: PELVIC FLOOR For the Purpose of:: To increase ROM, To improve muscle performance and motor function This patient was last seen in our office 10/25/22. Pertinent comments regarding their Physical therapy will appear below: This patient has not returned to Physical Therapy and is appropriate to return to MD for further follow-up as needed. At this point I will be discontinuing this patient from physical therapy. I would be happy to see this patient again in the future if found appropriate by the physician. Thank you! Claire Diaz, PT, Cert MDT Balance/Gait/Functional tests - Balance/Special Test Scores Oswestry Low Back Score: 10
== END 2022-10-25 19:00 | disposition home or self-care (01) ==
LOC: PT 10:57
PROVIDERS: PCP Family Medicine; Referring Provider Urology; Visit Provider Urology
DX: R69 Illness, unspecified (principal)
CPT/HCPCS: 97162

== ENCOUNTER → 2022-10-26 | Outpatient (CLI) | payer OTHER, SELFPAY | END | disposition home or self-care (01) | LOC: LABSPEC 15:32 | PROVIDERS: PCP Family Medicine; Visit Provider Family Medicine | DX: R31.29 Other microscopic hematuria (principal) | CPT/HCPCS: 87077; 87086; 87088 ==

== ENCOUNTER → 2022-11-03 | Outpatient (CLI) | payer OTHER, SELFPAY ==
--- NOTE | 2022-11-03 09:14 | MRI_ITS ---
STUDY: MRI LUMBAR SPINE WITHOUT CONTRAST REASON FOR EXAM: Female, 67 years old. Unable to empty bladder LBP,RT HIP PAIN, DIFFICULTY URINATING, HX BREAST CA 2003 TECHNIQUE: Standardized fat and water weighted pulse sequences were obtained in the sagittal and axial planes. COMPARISON: September 26, 2022 plain films FINDINGS: Lumbar spine is intact and aligned. There is heterogeneous marrow conversion due to degeneration and osteoporosis. There are scattered benign hemangiomata throughout. There are no osseous destructive lesions. Paraspinous soft tissues are normal. Aorta is normal caliber. Conus terminates at L1. Cauda equina is normal. T12-L1 has patent canal and foramina with mild disc degeneration. L1-L2 has patent canal and foramina with mild disc degeneration. L2-L3 has patent canal and foramina with mild disc degeneration. L3-L4 has patent canal, foramina and lateral recesses with mild disc and facet degeneration. L4-L5 has a disc bulge and facet and ligamentum flavum and capsular hypertrophic degeneration. There is minor thecal sac compression without nerve root crowding. Lateral recesses are patent bilaterally. Foramina are mildly stenotic bilaterally. L5-S1 has disc bulge, degeneration and facet degeneration. Canal and lateral recesses are patent. Foramina are mildly stenotic bilaterally. MRI/Spine Lumbar (Routine) IMPRESSION: 1. Age-related change/spondylosis. 2. Patent canal. 3. Mild bilateral L4-L5 and L5-S1 foraminal stenosis. Electronically Signed: Lizbeth Lyon MD at 15:16 EST ,
== END | disposition home or self-care (01) ==
LOC: MRI 09:14
PROVIDERS: PCP Family Medicine; Referring Provider Family Medicine; Visit Provider Family Medicine
DX: M48.061 Spinal stenosis, lumbar region without neurogenic claudication (principal); M47.816 Spondylosis without myelopathy or radiculopathy, lumbar region; M51.36 Other intervertebral disc degeneration, lumbar region; M48.07 Spinal stenosis, lumbosacral region; M51.26 Other intervertebral disc displacement, lumbar region; M81.0 Age-related osteoporosis without current pathological fracture; N31.9 Neuromuscular dysfunction of bladder, unspecified
CPT/HCPCS: 72148

== ENCOUNTER → 2022-11-13 | Outpatient (CLI) | payer OTHER, SELFPAY ==
--- NOTE | 2022-11-13 15:32 | US_ITS ---
EXAM: US PELVIS TRANSVAGINAL CLINICAL INDICATION: AUB TECHNIQUE: Transvaginal pelvic ultrasound was performed with grayscale and color Doppler imaging. Transvaginal imaging was used for better evaluation of the endometrium and adnexa. This report was created using [employer] technology. COMPARISON: None. FINDINGS: UTERUS/CERVIX: Uterus measures 6.2 x 2.7 x 4.0 cm. The endometrium measures 2 mm. The uterus is retroverted. There is a small calcification in the cervix that measures 2 mm. RIGHT OVARY: The right ovary is not visualized. LEFT OVARY: The left ovary measures 1.7 x 0.7 x 1.1 cm. Blood flow is present in the left ovary. FREE FLUID: None. BLADDER: Empty bladder which cannot be evaluated with this probe. US/Pelvic (Non ) IMPRESSION: Nonvisualization the right ovary. There is a small calcification in the cervix. No other abnormalities identified. Electronically Signed: Mitch Dailey MD at 20:04 [facility] ,
== END | disposition home or self-care (01) ==
PROVIDERS: PCP Family Medicine; Visit Provider Urology
DX: N93.9 Abnormal uterine and vaginal bleeding, unspecified (principal)
CPT/HCPCS: 76830; 76856

== ENCOUNTER → 2022-12-10 | Outpatient (CLI) | payer OTHER, SELFPAY | END | disposition home or self-care (01) | LOC: LABSPEC 16:54 | PROVIDERS: PCP Family Medicine; Visit Provider Family Medicine | DX: L03.315 Cellulitis of perineum (principal) | CPT/HCPCS: 87070; 87077; 87205; 87252 ==

== ENCOUNTER → 2023-11-12 | Outpatient (CLI) | payer OTHER, SELFPAY ==
--- NOTE | 2023-11-12 14:34 | BD_ITS ---
STUDY: DUAL ENERGY X-RAY ABSORPTIOMETRY / DXA REASON FOR EXAM: Female, 68 years old. 733.90OsteopeniaBONE DENSITY REASON FOR EXAM TECHNIQUE: Bone Mineral Density (BMD) measurements of lumbar spine and bilateral hips were obtained. COMPARISON: Comparison is made with prior study dated August 23, 2020. FINDINGS: Lumbar Spine (L1-L4): g/cm2 (0.928) / T-score (-1.1) / Z-score (0.8) Findings are suggestive of normal bone density with a low fracture risk. Left Femur Total: g/cm2 (0.800) / T-score (-1.2) / Z-score (0.2) Left Femoral Neck: g/cm2 (0.607) / T-score (-2.2) / Z-score (-0.6) Right Femur Total: g/cm2 (0.806) / T-score (-1.1) / Z-score (0.2) Right Femoral Neck: g/cm2 (0.656) / T-score (-1.7) / Z-score (-0.1) The T-Scores on the most recent prior examination were: Lumbar Spine (L1-L4): There has been worsening of bone density since the previous examination. Left Femur Total: which represents an improvement of 1.2%. Right Femur Total: which represents a worsening of 1.3%. BD/Dexa Bone Density Study IMPRESSION: The patient is considered osteopenic as outlined below according to World Jimmie Organization (WHO) criteria with a high fracture risk. There has been worsening of bone density since the previous examination. Reference Information: The T-score is the number of standard deviations above or below the standard which is normal for young adults at their peak bone mineral density. The World Health Organization (WHO) interprets the T-scores as follows: Above -1 Normal bone density Between -1 and -2.5 Osteopenia Equal to / or below -2.5 Osteoporosis As a practical clinical guideline, osteopenia may be graded as follows: Mild -1 through -1.5 Moderate -1.6 through -2.0 Severe -2.1 through -2.4 The Z-score is the number of standard deviations above or below age-matched controls. A Z-score of less than -1.5 would be considered abnormal. References: 1. NIH Osteoporosis and Related Bone Diseases www osteo.org 2. International Society for Clinical Densitometry www iscd.org 3. National Osteoporosis Foundation www nof.org Electronically Signed: Milton Guzman MD at 15:01 EST ,
== END | disposition home or self-care (01) ==
LOC: OPBD 14:24
PROVIDERS: PCP Family Medicine; Referring Provider Family Medicine; Visit Provider Family Medicine
DX: M85.80 Other specified disorders of bone density and structure, unspecified site (principal)
CPT/HCPCS: 77080

== ENCOUNTER 2024-11-23 11:00 | Outpatient (RCR) | payer OTHER, SELFPAY ==
--- NOTE | 2024-11-23 12:52 | HP.PTEVAL ---
Patient's Visit Information Visit Information Visit Information: BRAN ANDRES is a 69 year old F referred to Physical Therapy by Dr. Jennifer Reno DC with a diagnosis of R hip OA, Cervical DDD. Date of Evaluation: 11/23/24 Physical Therapist: Ori Chung DPT Visit Plan Frequency: 1x/Week Duration: 6 Weeks Plan: 1) DN to L UT/levator scap, and R greater trochanter 2) glute med/max strengthening 3) scpular and postural strengthening Subjective Subjective: Pt. is here today for her initial evaluation with diagnosis of degenerative joint diease of R hip, RA, DDD of cervical spine, OA of R hip. Pt. reports having increased pain sleeping with attempts to lay on R or L side. Pt. has increased R lateral hip pain (greater trochanteric region) wit lying on R side. She has increased L UT and shoulder pain with lying on her L side. She also have increased C/T junction pain with supine lying. Pt. reports doing a lot of yoga and this is her form of exercise. Pt. did have cancer many years ago. Pt. reports having tightness in L UT/levator scap region, and R greater trochanteric region. Pt. denies N/T. Pt's main complaint is of difficulty sleeping. She would like to get back to all of her activiites without limitations, but would really like to be able to sleep better. Pain L UT: Pain Intensity (Out of 10): 1 Pain Intensity Range: 0 and 4 R greater trochanter: Pain Intensity (Out of 10): 3 Pain Intensity Range: 0 and 5 Objective Objective: POSTURE: Pt. has a slight reduced height of R shoulder compaired to L. Pt. has equal iliac crest heights. PALPATION: Pt. has some tenderness at L UT, L levator scap, R greater trochanter. NEURO: Normal throughout. Normal DTR of BLEs. Pt. is able to rise on heels and toes without issues. ROM: Pt. has great ROM of B hips and lumbar spine. Slightly limited with extension of lumbar spine. CERVICAL SPINE: flexion min loss tightness noted, ext min loss tightness note, rotation and SB normal without issues. MMT: PT. has full strength of BLEs, except 4+ B hip extension and abduction. Slight weakness in multifidus, and lumbar/thoracic erector spinae. GAIT: Pt. has fairly normal gait pattern, slight lateral hip sway. No trendelemburg noted. Special Tests C/S Radiculapathy - Left Spurlings: Negative C/S Radiculapathy - Left Cervical distraction: Negative C/S Radiculapathy - Left Relief test: Negative Sharp Niko: Negative Vertebral Artery Test: Negative Alar Ligament Test: Negative R Hip Scour: Negative R Hip Quadrant - Intraarticular Pathology: Negative R Hip FADDIR - Labrum: Negative R Hip Impingement Provocation - Labrum: Negative R Hip Flavio - IT Band: Positive Balance/Special Test Scores Oswestry Low Back Score: 11 Goals Goal 1:: LTG: Pt. to be I with HEP. Goal Time Frame: 4-6 Weeks Goal 2:: LTG: Pt. to sleep without increase in symptoms. Goal Time Frame: 4-6 Weeks Goal 3:: LTG: pt. to be able to complete all actiities without increase in R hip pain. Goal Time Frame: 4-6 Weeks Goal 4:: LTG: Pt. to have increased R glute strength to 5/5 throughout. Goal Time Frame: 4-6 Weeks Goal 5:: LTG: Pt. to reports no L UT pain with all activities. Goal Time Frame: 4-6 Weeks Rehabilitation Potential Physical Therapy Diagnosis: Pt. has signs and symptoms consistent with R hip OA and cervical DDD. She has good Rom of her R hip, but mostly lateral hip pain. I would suggest she work on glute med/max strengthening. For her L UT region, I suggest doing inhibition and DN to L UT then strength her scapular and postural musculature. Rehabilitation Potential: Excellent Anticipated Interventions Patient/Client Instruction: Educate patient on: Condition, Plan of Care, Risk Factors and Benefits of Fitness Program For the Purpose of:: To improve decision making, To facilitate caregiver knowledge, To improve self management, To prevent re-injury and To improve ability to perform tasks related to life management Therapeutic Exercise to Include: Strength training, Power training, Flexibilty training, Passive ROM, Active ROM, Dynamic Lumbar Stabilization and Scapular Strength/Stabilization For the Purpose of:: To decrease pain, To increase ROM, To improve nutrient delivery to tissue, To increase oxygenation perfusion, To improve muscle performance and motor function, To improve ability to perform ADL's, To decrease soft tissue restriction and To increase flexibility/ROM Manual Therapy Techniques to Include: Mobilization, Functional dry needling and Soft tissue mobilization For the Purpose of:: To decrease pain, To increase ROM, To improve nutrient delivery to tissue, To increase oxygenation perfusion and To improve muscle performance and motor function Text: Thank you for the opportunity to evaluate your patient. For Medicare and Medicare HMO plans, please review the plan of care and approve it. It will need to be FAXED BACK to us at [phone] for Medicare purposes. For Medicare only, by signing this I certify the plan of care. Please let me know if there are questions or concerns regarding this plan of care. Physician Signature: Date:
== END 2024-11-23 19:00 | disposition home or self-care (01) ==
LOC: PT 11:00
PROVIDERS: PCP Family Medicine; Referring Provider Chiropractor; Visit Provider Chiropractor
DX: M16.11 Unilateral primary osteoarthritis, right hip (principal); M06.9 Rheumatoid arthritis, unspecified; M50.30 Other cervical disc degeneration, unspecified cervical region
CPT/HCPCS: 97161